=== PATIENT | male | born 1965 | race Caucasian/White ===

== ENCOUNTER → 2016-11-08 | Outpatient (REF) | payer BC ==
[2016-11-08 15:05] LABS: ALBUMIN 3.9 GM/DL (3.2-5.2); ALBUMIN/GLOBULIN RATIO 1.26 (1.00-1.93); ALKALINE PHOSPHATASE 85 U/L (45-117); ALT/SGPT 38 U/L (12-78); ANION GAP 8 MEQ/L (8-16); AST/SGOT 16 U/L (15-37); BILIRUBIN,TOTAL 0.7 MG/DL (0.2-1.0); BLOOD UREA NITROGEN 13 MG/DL (7-18); CALCIUM LEVEL 8.9 MG/DL (8.5-10.1); CARBON DIOXIDE LEVEL 27 MEQ/L (21-32); CHLORIDE LEVEL 106 MEQ/L (98-107); CHOLESTEROL LEVEL 228 MG/DL (<200); CREATININE FOR GFR 1.02 MG/DL (0.70-1.30); GLOMERULAR FILTRATION RATE > 60.0 (>56); GLUCOSE, FASTING 90 MG/DL (70-105); POTASSIUM SERUM 4.1 MEQ/L (3.5-5.1); SODIUM LEVEL 141 MEQ/L (136-145); TRIGLYCERIDES LEVEL 132 MG/DL (<150)
== END ==
LOC: M SFHCCLAY 07:39
PROVIDERS: ATTEND Family Medicine
DX: E78.2 Mixed hyperlipidemia (principal); I10 Essential (primary) hypertension

== ENCOUNTER → 2017-09-08 | Outpatient (REF) | payer BC ==
[2017-09-08 11:41] LABS: BASO # 0.1 10^3/uL (0.0-0.2); BASO % 1.2 % (0.0-1.0); EOS # 0.1 10^3/uL (0.0-0.50); EOS % 2.7 % (0.0-3.0); HEMOGLOBIN 15.3 g/dl (13.5-17.5); IMMATURE GRANULOCYTE % 0.2 % (0-3.0); LYMPH # 0.6 10^3/uL (1.5-4.5); LYMPH % 15.1 % (24.0-44.0); MEAN CORPUSCULAR HEMOGLOBIN 30.3 pg (27.0-33.0); MEAN CORPUSCULAR HGB CONC 33.3 g/dl (32.0-36.5); MEAN CORPUSCULAR VOLUME 91.1 fl (80.0-96.0); MONO # 0.4 10^3/uL (0.0-0.8); MONO % 10.9 % (0.0-5.0); NEUTROPHILS # 2.8 10^3/uL (1.8-7.7); NEUTROPHILS % 69.9 % (36.0-66.0); PLATELET COUNT, AUTOMATED 178 10^3/uL (150-450); RED BLOOD COUNT 5.05 10^6/uL (4.30-6.10); RED CELL DISTRIBUTION WIDTH 13.5 % (11.5-14.5)
[2017-09-08 12:06] LABS: ALBUMIN 4.2 GM/DL (3.2-5.2); ALKALINE PHOSPHATASE 86 U/L (45-117); ALT/SGPT 32 U/L (12-78); ANION GAP 4 MEQ/L (8-16); AST/SGOT 18 U/L (7-37); BILIRUBIN,TOTAL 0.4 MG/DL (0.2-1.0); BLOOD UREA NITROGEN 12 MG/DL (7-18); CALCIUM LEVEL 8.9 MG/DL (8.5-10.1); CARBON DIOXIDE LEVEL 28 MEQ/L (21-32); CHLORIDE LEVEL 110 MEQ/L (98-107); CHOLESTEROL LEVEL 195 MG/DL (<200); CREATININE FOR GFR 0.93 MG/DL (0.70-1.30); GLOMERULAR FILTRATION RATE > 60.0 (>56); GLUCOSE, FASTING 103 MG/DL (70-100); HDL CHOLESTEROL 67 MG/DL (>40); NON-HDL-C 128 MG/DL; POTASSIUM SERUM 4.9 MEQ/L (3.5-5.1); SODIUM LEVEL 142 MEQ/L (136-145); TOTAL PROTEIN 7.2 GM/DL (6.4-8.2); TRIGLYCERIDES LEVEL 85 MG/DL (<150)
== END ==
LOC: M SFHCCLAY 09:37
DX: E78.2 Mixed hyperlipidemia (principal); I10 Essential (primary) hypertension; R42 Dizziness and giddiness
CPT/HCPCS: 84443

== ENCOUNTER → 2018-01-30 | Outpatient (REF) | payer BC ==
[2018-01-30 11:49] LABS: BASO # 0.1 10^3/uL (0.0-0.2); EOS # 0.1 10^3/uL (0.0-0.50); EOS % 2.7 % (0.0-3.0); HEMATOCRIT 42.9 % (42.0-52.0); HEMOGLOBIN 14.6 g/dl (13.5-17.5); IMMATURE GRANULOCYTE % 0.2 % (0-3.0); LYMPH # 0.7 10^3/uL (1.5-4.5); LYMPH % 13.8 % (24.0-44.0); MEAN CORPUSCULAR HEMOGLOBIN 31.4 pg (27.0-33.0); MEAN CORPUSCULAR VOLUME 92.3 fl (80.0-96.0); MONO # 0.5 10^3/uL (0.0-0.8); MONO % 9.4 % (0.0-5.0); NEUTROPHILS # 3.5 10^3/uL (1.8-7.7); NEUTROPHILS % 72.9 % (36.0-66.0); PLATELET COUNT, AUTOMATED 145 10^3/uL (150-450); RED BLOOD COUNT 4.65 10^6/uL (4.30-6.10); RED CELL DISTRIBUTION WIDTH 13.6 % (11.5-14.5); WHITE BLOOD COUNT 4.8 10^3/uL (4.0-10.0)
[2018-01-30 11:59] LABS: ESTIMATED AVERAGE GLUCOSE 103 MG/DL (60-110); HEMOGLOBIN A1c 5.2 %
[2018-01-30 12:17] LABS: ALBUMIN 3.9 GM/DL (3.2-5.2); ALKALINE PHOSPHATASE 84 U/L (45-117); ALT/SGPT 32 U/L (12-78); ANION GAP 7 MEQ/L (8-16); AST/SGOT 20 U/L (7-37); BILIRUBIN,TOTAL 0.4 MG/DL (0.2-1.0); BLOOD UREA NITROGEN 15 MG/DL (7-18); CALCIUM LEVEL 8.6 MG/DL (8.5-10.1); CARBON DIOXIDE LEVEL 28 MEQ/L (21-32); CHLORIDE LEVEL 107 MEQ/L (98-107); CHOLESTEROL LEVEL 214 MG/DL (<200); CHOLESTEROL RISK RATIO 3.292 (<5); CREATININE FOR GFR 0.94 MG/DL (0.70-1.30); FREE T4 0.89 NG/DL (0.76-1.46); GLOMERULAR FILTRATION RATE > 60.0 (>56); GLUCOSE, FASTING 94 MG/DL (70-100); HDL CHOLESTEROL 65 MG/DL (>40); LDL CHOLESTEROL 127 MG/DL (<100); NON-HDL-C 149 MG/DL; POTASSIUM SERUM 4.3 MEQ/L (3.5-5.1); SODIUM LEVEL 142 MEQ/L (136-145); TOTAL PROTEIN 6.9 GM/DL (6.4-8.2); TRIGLYCERIDES LEVEL 109 MG/DL (<150)
== END ==
LOC: M SFHCCLAY 07:40
DX: E78.2 Mixed hyperlipidemia (principal); K21.9 Gastro-esophageal reflux disease without esophagitis; I10 Essential (primary) hypertension; R73.01 Impaired fasting glucose
CPT/HCPCS: 84443

== ENCOUNTER → 2018-02-06 | Outpatient (REF) | payer BC | LOC: M LAB REF 12:53 | DX: Z00.00 Encounter for general adult medical examination without abnormal findings (principal) ==

== ENCOUNTER → 2018-04-19 | Outpatient (REF) | payer BC ==
[2018-04-19 17:05] LABS: PROSTATIC SPECIFIC AG MONITOR 0.6 NG/ML (< 4.0)
== END ==
LOC: M LABDRAWC 16:31
DX: Z12.5 Encounter for screening for malignant neoplasm of prostate (principal)
CPT/HCPCS: 84153

== ENCOUNTER → 2018-08-01 | Outpatient (REF) | payer BC ==
[2018-08-01 12:07] LABS: EOS # 0.1 10^3/uL (0.0-0.50); EOS % 3.1 % (0.0-3.0); HEMOGLOBIN 15.2 g/dl (13.5-17.5); LYMPH # 0.6 10^3/uL (1.5-4.5); LYMPH % 14.8 % (24.0-44.0); MEAN CORPUSCULAR HEMOGLOBIN 30.3 pg (27.0-33.0); MEAN CORPUSCULAR VOLUME 91.6 fl (80.0-96.0); MONO # 0.4 10^3/uL (0.0-0.8); MONO % 9.9 % (0.0-5.0); NEUTROPHILS # 2.9 10^3/uL (1.8-7.7); PLATELET COUNT, AUTOMATED 165 10^3/uL (150-450); RED BLOOD COUNT 5.02 10^6/uL (4.30-6.10); WHITE BLOOD COUNT 4.1 10^3/uL (4.0-10.0)
[2018-08-01 13:03] LABS: ALBUMIN 4.1 GM/DL (3.2-5.2); ALT/SGPT 31 U/L (12-78); BILIRUBIN,TOTAL 0.3 MG/DL (0.2-1.0); BLOOD UREA NITROGEN 16 MG/DL (7-18); CALCIUM LEVEL 8.5 MG/DL (8.5-10.1); CARBON DIOXIDE LEVEL 26 MEQ/L (21-32); CHLORIDE LEVEL 109 MEQ/L (98-107); CHOLESTEROL LEVEL 204 MG/DL (<200); CREATININE FOR GFR 1.06 MG/DL (0.70-1.30); FREE T4 0.79 NG/DL (0.76-1.46); GLOMERULAR FILTRATION RATE > 60.0 (>56); GLUCOSE, FASTING 100 MG/DL (70-100); HDL CHOLESTEROL 68 MG/DL (>40); LDL CHOLESTEROL 120 MG/DL (<100); NON-HDL-C 136 MG/DL; POTASSIUM SERUM 4.6 MEQ/L (3.5-5.1); SODIUM LEVEL 142 MEQ/L (136-145); TRIGLYCERIDES LEVEL 82 MG/DL (<150)
[2018-08-01 13:29] LABS: HEMOGLOBIN A1c 5.5 %
== END ==
LOC: M SFHCCLAY 07:44
PROVIDERS: ATTEND Nurse Practitioner Family
DX: E78.2 Mixed hyperlipidemia (principal); I10 Essential (primary) hypertension; K21.9 Gastro-esophageal reflux disease without esophagitis; R73.01 Impaired fasting glucose

== ENCOUNTER → 2019-02-14 | Outpatient (REF) | payer BC ==
[2019-02-14 16:32] LABS: BASO % 0.9 % (0.0-1.0); EOS # 0.1 10^3/uL (0.0-0.5); EOS % 1.3 % (0.0-3.0); HEMATOCRIT 44.6 % (42.0-52.0); HEMOGLOBIN 14.8 g/dl (13.5-17.5); LYMPH # 0.6 10^3/uL (1.5-5.0); LYMPH % 12.8 % (24.0-44.0); MEAN CORPUSCULAR HEMOGLOBIN 30.6 pg (27.0-33.0); MEAN CORPUSCULAR HGB CONC 33.2 g/dl (32.0-36.5); MEAN CORPUSCULAR VOLUME 92.3 fl (80.0-96.0); MONO # 0.6 10^3/uL (0.0-0.8); MONO % 12.8 % (0.0-5.0); NEUTROPHILS # 3.4 10^3/uL (1.5-8.5); PLATELET COUNT, AUTOMATED 150 10^3/uL (150-450); RED BLOOD COUNT 4.83 10^6/uL (4.30-6.10); WHITE BLOOD COUNT 4.7 10^3/uL (4.0-10.0)
[2019-02-14 17:08] LABS: ALBUMIN 4.3 GM/DL (3.2-5.2); ALT/SGPT 44 U/L (12-78); BILIRUBIN,TOTAL 0.5 MG/DL (0.2-1.0); BLOOD UREA NITROGEN 16 MG/DL (7-18); CALCIUM LEVEL 9.1 MG/DL (8.5-10.1); CARBON DIOXIDE LEVEL 29 MEQ/L (21-32); CHLORIDE LEVEL 104 MEQ/L (98-107); CHOLESTEROL LEVEL 232 MG/DL (<200); CHOLESTEROL RISK RATIO 3.012 (<5); FREE T4 0.81 NG/DL (0.76-1.46); GLOMERULAR FILTRATION RATE > 60.0 (>56); GLUCOSE, FASTING 80 MG/DL (70-100); HDL CHOLESTEROL 77 MG/DL (>40); LDL CHOLESTEROL 132 MG/DL (<100); NON-HDL-C 155 MG/DL; POTASSIUM SERUM 4.3 MEQ/L (3.5-5.1); SODIUM LEVEL 138 MEQ/L (136-145); TOTAL PROTEIN 7.2 GM/DL (6.4-8.2); TRIGLYCERIDES LEVEL 113 MG/DL (<150)
[2019-02-14 18:06] LABS: HEMOGLOBIN A1c 5.4 %
== END ==
LOC: M SFHCCLAY 13:19
PROVIDERS: ATTEND Nurse Practitioner Family
DX: K21.9 Gastro-esophageal reflux disease without esophagitis (principal); E78.2 Mixed hyperlipidemia; I10 Essential (primary) hypertension; R73.01 Impaired fasting glucose

== ENCOUNTER → 2019-06-26 | Outpatient (CLI) | payer BC ==
[2019-06-28 00:08] LABS: PSA TOTAL 0.9 ng/mL (0.0-4.0)
== END ==
LOC: M WUC 09:03
PROVIDERS: ATTEND Nurse Practitioner
DX: Z12.5 Encounter for screening for malignant neoplasm of prostate (principal)

== ENCOUNTER → 2020-06-30 | Outpatient (CLI) | payer BC ==
[2020-07-02 00:07] LABS: PSA TOTAL 0.6 ng/mL (0.0-4.0)
== END ==
LOC: M WUC 09:07
PROVIDERS: ATTEND Nurse Practitioner
DX: N20.0 Calculus of kidney (principal)

== ENCOUNTER → 2021-04-06 | Outpatient (REF) | payer BC ==
[2021-04-06 13:11] LABS: BASO % 0.7 % (0.0-1.0); EOS # 0.1 10^3/uL (0.0-0.5); EOS % 2.9 % (0.0-3.0); HEMATOCRIT 46.3 % (42.0-52.0); HEMOGLOBIN 15.1 g/dl (13.5-17.5); LYMPH # 0.5 10^3/uL (1.5-5.0); LYMPH % 12.9 % (24.0-44.0); MEAN CORPUSCULAR HEMOGLOBIN 30.8 pg (27.0-33.0); MEAN CORPUSCULAR HGB CONC 32.6 g/dl (32.0-36.5); MEAN CORPUSCULAR VOLUME 94.3 fl (80.0-96.0); MONO # 0.6 10^3/uL (0.0-0.8); MONO % 13.2 % (2.0-8.0); NEUTROPHILS # 2.9 10^3/uL (1.5-8.5); NEUTROPHILS % 70.1 % (36.0-66.0); PLATELET COUNT, AUTOMATED 140 10^3/uL (150-450); RED BLOOD COUNT 4.91 10^6/uL (4.30-6.10); WHITE BLOOD COUNT 4.2 10^3/uL (4.0-10.0)
[2021-04-06 13:53] LABS: ALBUMIN 3.8 GM/DL (3.2-5.2); ALT/SGPT 28 U/L (12-78); BILIRUBIN,TOTAL 0.4 MG/DL (0.2-1.0); BLOOD UREA NITROGEN 14 MG/DL (7-18); CARBON DIOXIDE LEVEL 28 MEQ/L (21-32); CHLORIDE LEVEL 105 MEQ/L (98-107); CHOLESTEROL LEVEL 226 MG/DL (<200); CREATININE FOR GFR 0.99 MG/DL (0.70-1.30); GLOMERULAR FILTRATION RATE > 60.0 (>56); GLUCOSE, FASTING 87 MG/DL (70-100); HDL CHOLESTEROL 59 MG/DL (>40); LDL CHOLESTEROL 149 MG/DL (<100); NON-HDL-C 167 MG/DL; POTASSIUM SERUM 4.6 MEQ/L (3.5-5.1); SODIUM LEVEL 139 MEQ/L (136-145); TOTAL PROTEIN 6.8 GM/DL (6.4-8.2); TRIGLYCERIDES LEVEL 92 MG/DL (<150)
== END ==
LOC: M SFHCADAM 08:19
PROVIDERS: ATTEND Family Medicine
DX: Z00.00 Encounter for general adult medical examination without abnormal findings (principal)

== ENCOUNTER → 2021-07-05 | Outpatient (REF) | payer BC | LOC: M LABDRWAD 12:20 | PROVIDERS: ATTEND Nurse Practitioner | DX: Z12.5 Encounter for screening for malignant neoplasm of prostate (principal) ==

== ENCOUNTER → 2021-11-10 | Outpatient (REF) | payer BC | LOC: M SFHCDERM 14:49 | PROVIDERS: ATTEND Dermatology | DX: C44.320 Squamous cell carcinoma of skin of unspecified parts of face (principal) ==

== ENCOUNTER → 2022-02-24 | Outpatient (CLI) | payer BC | LOC: M LABSMTC 09:59 | PROVIDERS: ATTEND Anesthesiology | DX: Z01.812 Encounter for preprocedural laboratory examination (principal); Z20.822 Contact with and (suspected) exposure to COVID-19 ==

== ENCOUNTER → 2022-03-10 | Outpatient (CLI) | payer BC ==
[~2022-03-10] MED LIST: AMLO1TAB25; HYDR-3363; LOSA100T45; OMEP-173; OXYB15TA14; SERT50TA29; SIMV10TA21; SOLI10TA
== END ==
LOC: M LABSMTC 09:19
PROVIDERS: ATTEND Anesthesiology
DX: Z01.812 Encounter for preprocedural laboratory examination (principal); Z20.822 Contact with and (suspected) exposure to COVID-19

== ENCOUNTER 2022-03-15 06:53 | Day surgery (SDC) | payer BC ==
[~2022-03-15] VITALS: Ht 177.8 cm; Wt 98.4 kg
[~2022-03-15 06:53] MED LIST changes: +BSS IRR 500ML/OMIDRIA 4ML IRR BAG (OR ONLY) As Ordered ONE; +CEFUROXIME 1MG/0.1ML INTRACAMERAL INJ As Ordered ONE; +CYCLOPENTOLATE 1% OPHTH SOLN 2 ML BTL OD SCH; +LIDOCAINE 1% SDV 5ML VIAL As Ordered ONE; +OFLOXACIN 0.3 % (OCUFLOX) OPTH SOL 5ML OD SCH; +PHENYLEPHRINE 2.5% OPHTH SOL 2ML OD SCH; +PROPARACAINE 0.5% OPHTH SOL 15ML OD ONE; +TROPICAMIDE 1% OPHTH SOLN 2ML OD SCH
[2022-03-15] MEDS ORDERED: fentaNYL 100 MCG/2 ML INJECTION As Ordered ONE (07:45)
[2022-03-15] MEDS ORDERED: MIDAZOLAM INJ 2MG/2ML VIAL (J2250 PER 1MG) As Ordered ONE (07:45)
[2022-03-15] MEDS ORDERED: TOBRADEX OPHTH OINT 3.5 GM As Ordered ONE (08:55)
[2022-03-15 09:04] VITALS: BP 132/76
== END 2022-03-15 09:25 | disposition home or self-care (01) ==
LOC: M SDC 06:53
PROVIDERS: ATTEND Ophthalmology
DX: H25.11 Age-related nuclear cataract, right eye (principal); I10 Essential (primary) hypertension; E78.5 Hyperlipidemia, unspecified; K21.9 Gastro-esophageal reflux disease without esophagitis; G47.33 Obstructive sleep apnea (adult) (pediatric); Z86.16 Personal history of COVID-19; M54.50 Low back pain, unspecified; Z79.899 Other long term (current) drug therapy
CPT/HCPCS: 66984; J0697; J1097; J2250; J3010

== ENCOUNTER → 2022-07-14 | Outpatient (CLI) | payer BC ==
[~2022-07-14] MED LIST changes: -BSS IRR 500ML/OMIDRIA 4ML IRR BAG (OR ONLY) As Ordered ONE; -CEFUROXIME 1MG/0.1ML INTRACAMERAL INJ As Ordered ONE; -CYCLOPENTOLATE 1% OPHTH SOLN 2 ML BTL OD SCH; -LIDOCAINE 1% SDV 5ML VIAL As Ordered ONE; -OFLOXACIN 0.3 % (OCUFLOX) OPTH SOL 5ML OD SCH; -PHENYLEPHRINE 2.5% OPHTH SOL 2ML OD SCH; -PROPARACAINE 0.5% OPHTH SOL 15ML OD ONE; -TROPICAMIDE 1% OPHTH SOLN 2ML OD SCH
== END ==
LOC: M WUC 08:22
PROVIDERS: ATTEND Nurse Practitioner
DX: Z12.5 Encounter for screening for malignant neoplasm of prostate (principal)

== ENCOUNTER → 2023-02-20 | Outpatient (REF) | payer BC ==
[~2023-02-20] MED LIST changes: -LOSA100T45; +LOSA100T46
== END ==
LOC: M SFHCDERM 17:52
PROVIDERS: ATTEND Nurse Practitioner Family
DX: D04.9 Carcinoma in situ of skin, unspecified (principal); L57.8 Other skin changes due to chronic exposure to nonionizing radiation

== ENCOUNTER → 2024-01-10 | Outpatient (CLI) | payer BC | LOC: M PLAIMG 13:26 | PROVIDERS: ATTEND Family Medicine | DX: R09.89 Other specified symptoms and signs involving the circulatory and respiratory systems (principal); Z82.49 Family history of ischemic heart disease and other diseases of the circulatory system ==

== ENCOUNTER → 2024-04-26 | Day surgery (SDC) | payer BC ==
[~2024-04-26] VITALS: Ht 177.8 cm; Wt 96.3 kg
[~2024-04-26] MED LIST changes: -AMLO1TAB25; +AMLO1TAB25 PO; -HYDR-3363; +HYDR-3363 PO; -LOSA100T46; +LOSA100T46 PO; -OMEP-173; +OMEP-173 PO; +OXYB10TA23 PO; -SERT50TA29; +SERT50TA29 PO; -SIMV10TA21; +SIMV10TA21 PO; -SOLI10TA; +SOLI10TA PO; +propofoL 200 MG/20 ML VIAL As Ordered ONE
[2024-04-26 12:19] VITALS: TEMP 97.1
[2024-04-26 12:41] VITALS: BP 125/73; O2SAT 95
== END | disposition home or self-care (01) ==
LOC: M OPP 10:35
PROVIDERS: ATTEND Surgery
DX: Z12.11 Encounter for screening for malignant neoplasm of colon (principal); Z12.12 Encounter for screening for malignant neoplasm of rectum; K21.9 Gastro-esophageal reflux disease without esophagitis; I10 Essential (primary) hypertension; E78.00 Pure hypercholesterolemia, unspecified; G47.30 Sleep apnea, unspecified; Z79.899 Other long term (current) drug therapy

== ENCOUNTER → 2024-08-13 | Outpatient (REF) | payer BC ==
[~2024-08-13] MED LIST changes: -propofoL 200 MG/20 ML VIAL As Ordered ONE
== END ==
LOC: M LABWUC 12:31
PROVIDERS: ATTEND Nurse Practitioner
DX: Z12.5 Encounter for screening for malignant neoplasm of prostate (principal)
CPT/HCPCS: 36415; G0103

== ENCOUNTER → 2025-03-17 | Outpatient (REF) | payer BC ==
[~2025-03-17] MED LIST changes: +PERC5TAB12 PO; +VIBE75TA PO
[2025-03-17 13:49] LABS: BASO # 0.0 10^3/uL (0.0-0.2); BASO % 0.8 % (0.0-1.0); EOS # 0.1 10^3/uL (0.0-0.5); EOS % 2.3 % (0.0-3.0); LYMPH # 0.8 10^3/uL (1.5-5.0); LYMPH % 15.8 % (24.0-44.0); MONO # 0.5 10^3/uL (0.0-0.8); MONO % 9.5 % (2.0-8.0); NEUTROPHILS # 3.8 10^3/uL (1.5-8.5); NEUTROPHILS % 71.4 % (36.0-66.0); PLATELET COUNT, AUTOMATED 161 10^3/uL (150-450)
[2025-03-17 13:51] LABS: ALT/SGPT 29.0 U/L (7.0-40); AST/SGOT 19.0 U/L (<34); CALCIUM LEVEL 9.0 MG/DL (8.3-10.6); CARBON DIOXIDE LEVEL 28.0 MMOL/L (20-31); CHLORIDE LEVEL 105.0 MMOL/L (98-107); CHOLESTEROL LEVEL 185.0 MG/DL (<200); CHOLESTEROL RISK RATIO 2.63 (<5); CREATININE FOR GFR 1.0 MG/DL (0.70-1.30); GLOMERULAR FILTRATION RATE 86.2 (>49); LDL CHOLESTEROL 93.0 MG/DL (<100); NON-HDL-C 114.8 MG/DL; POTASSIUM SERUM 4.3 MMOL/L (3.5-5.1); SODIUM LEVEL 140.0 MMOL/L (136-145); TRIGLYCERIDES LEVEL 109.0 MG/DL (<150)
== END ==
LOC: M SFHCADAM 08:23
PROVIDERS: ATTEND Family Medicine
DX: Z00.00 Encounter for general adult medical examination without abnormal findings (principal)

== ENCOUNTER → 2025-05-02 | Outpatient (CLI) | payer MEDICARE | LOC: M PLAIMG 10:43 | PROVIDERS: ATTEND Family Medicine | DX: I51.7 Cardiomegaly (principal) ==